=== PATIENT | male | born 1985 ===

== ENCOUNTER 2018-01-15 10:48 | Emergency (ER) | payer OTHER, SELFPAY ==
[2018-01-15 11:03] VITALS: BMI 29.4
[2018-01-15 11:06] VITALS: BP 111/73; PULSE 74; RESP 20; TEMP 98.5; O2SAT 97
--- NOTE | 2018-01-15 12:23 | ED PDOC ---
Upper Extremity Pain/Injury Time Seen by Provider: 01/15/18 11:47 Chief Complaint (Nursing): Upper Extremity Problem/Injury History Per: Patient, Compensation Adjuster (Hebrew [id number]) Additional Complaint(s): Pt. states yesterda at 1700 he slipped but prevented himself from falling but grabbing onto a railing with his L arm. He woke up in the middle of the night with non-radiating L shoulder pain. Denies numbness, tingling, chest pain, SOB, blunt trauma, neck pain. Past Medical History Reviewed: Historical Data, Nursing Documentation, Vital Signs Vital Signs: Last Vital Signs Temp 98.5 F 01/15/18 11:03 Pulse 74 01/15/18 11:03 Resp 20 01/15/18 11:03 BP 111/73 01/15/18 11:03 Pulse Ox 97 01/15/18 11:03 - Medical History PMH: No Chronic Diseases - Surgical History Surgical History: Appendectomy - Family History Family History: States: No Known Family Hx - Home Medications Home Medications: Ambulatory Orders Medication Instructions Recorded Cephalexin [Keflex] 500 mg PO QID #28 cap 12/28/14 Naproxen [Naprosyn] 500 mg PO BID PRN #10 tab 01/15/18 - Allergies Allergies/Adverse Reactions: Allergies Allergy/AdvReac Type Severity Reaction Status Date / Time No Known Allergies Allergy Verified 01/15/18 11:40 Review of Systems ROS Statement: Except As Marked, All Systems Reviewed And Found Negative Musculoskeletal: Positive for: Shoulder Pain Physical Exam - Physical Exam Appears: Positive for: Well, Non-toxic, No Acute Distress Head Exam: Positive for: ATRAUMATIC, NORMAL INSPECTION, NORMOCEPHALIC Skin: Positive for: Normal Color, Warm. Negative for: Rash Eye Exam: Positive for: Normal appearance Neck: Positive for: Normal, Painless ROM Cardiovascular/Chest: Positive for: Regular Rate, Rhythm, Chest Non Tender Respiratory: Positive for: Normal Breath Sounds. Negative for: Respiratory Distress Pulses-Radial (L): 2+ Pulses-Radial (R): 2+ Extremity: Positive for: Capillary Refill (< 2 seconds of L hand), Other (LEFT upper extremity: L lateral shoulder tenderness without deformity; limited ROM of shoulder actively secondary to pain; FROM of L shoulder passively but with pain) Neurologic/Psych: Positive for: Alert, Oriented - ECG O2 Sat by Pulse Oximetry: 97 - Radiology X-Ray: Interpreted by Me (L shoulder x-ray) X-Ray Interpretation: No Acute Disease - Progress ED Course And Treament: Naproxen 500mg PO, L shoulder x-ray ordered. Using nurse sane [id number] pt. was advised to f/u with orthopedist for further evaluation. Shoulder immobilized in sling applied by PA. Disposition - Clinical Impression Clinical Impression: Shoulder injury - Patient ED Disposition Is Patient to be Admitted: No - Disposition Referrals: Aramis Francois III, MD [Staff Provider] - Disposition: Routine/Home Disposition Time: 13:15 Condition: STABLE Additional Instructions: [facility], thank you for letting us take care of you today. Your provider was Chloe Mckeon MD and you were treated for LEFT SHOULDER PAIN. The emergency medical care you received today was directed at your acute symptoms. If you were prescribed any medication, please fill it and take as directed. It may take several days for your symptoms to resolve. Return to the Emergency Department if your symptoms worsen, do not improve, or if you have any other problems. Please contact your doctor or call one of the physicians/clinics you have been referred to that are listed on the Patient Visit Information form that is included in your discharge packet. Bring any paperwork you were given at discharge with you along with any medications you are taking to your follow up visit. Our treatment cannot replace ongoing medical care by a primary care provider outside of the emergency department. Thank you for allowing the [facility] team to be part of your care today. If you had an X-Ray or CT scan: A Radiologist will review the ED reading if any change in treatment is needed we will contact you. If you had a blood, urine, or wound culture: It will take several days for the results, if any change in treatment is needed we will contact you. If you had an STI test: It will take 48 hours for the results. Please call after 1 week if you have not heard back. Prescriptions: Naproxen [Naprosyn] 500 mg PO BID PRN #10 tab PRN Reason: Pain Instructions: Shoulder Sprain Forms: [employer] (Bulgarian), [facility] ED School/Work Excuse Print Language: ALBANIAN
[2018-01-15] MEDS ORDERED: Naproxen 500 MG TAB PO ONE (12:51)
[2018-01-15] MEDS: Naproxen 500 MG TAB PO ONE (12:51)
--- NOTE | 2018-01-15 13:56 | RAD ---
Date of service: 01/15/2018 PROCEDURE: Radiographs of the Left Shoulder HISTORY: trauma COMPARISON: No prior. FINDINGS: BONES: Normal. No fracture. JOINTS: Normal. Glenohumeral and acromioclavicular joints preserved. No osteoarthritis. SOFT TISSUES: Normal. OTHER FINDINGS: None. IMPRESSION: Normal radiographs of the left shoulder.
== END 2018-01-15 14:20 | disposition home or self-care (01) ==
LOC: H.ER 10:48
DX: S49.92XA Unspecified injury of left shoulder and upper arm, initial encounter (principal); W19.XXXA Unspecified fall, initial encounter; Y92.89 Other specified places as the place of occurrence of the external cause

== ENCOUNTER 2018-01-27 20:56 | Emergency (ER) | payer OTHER, SELFPAY ==
[2018-01-27 20:56] VITALS: BMI 29.4
[2018-01-27 21:52] VITALS: O2SAT 97
[2018-01-27] MEDS ORDERED: Sodium Chloride 0.9% 1,000 ML IV STA (22:16)
[2018-01-27] MEDS ORDERED: Iohexol 240 (50 ml) PO ONE (22:39)
--- NOTE | 2018-01-27 22:59 | ED PDOC ---
HPI: Abdomen Time Seen by Provider: 01/27/18 21:14 Chief Complaint (Nursing): Abdominal Pain Chief Complaint (Provider): Abdominal Pain History Per: Patient History/Exam Limitations: no limitations Onset/Duration Of Symptoms: Days (x2) Current Symptoms Are (Timing): Still Present Additional Complaint(s): 32-year-old female, with no significant past medical history, presenting for evaluation of abdominal pain associated with diarrhea x2 days. Patient states her symptoms began last night. She reports diarrhea yesterday, but none today. Patient also reports a low grade fever today. She confirms nausea, but denies any vomiting. Patient admits to drinking 2 beers yesterday and states she drinks one or twice a week. PMD: None reported Past Medical History Reviewed: Historical Data, Nursing Documentation, Vital Signs Vital Signs: Last Vital Signs Temp 98.1 F 01/28/18 03:05 Pulse 81 01/28/18 03:05 Resp 18 01/28/18 03:05 BP 112/70 01/28/18 03:05 Pulse Ox 97 01/28/18 03:05 - Medical History PMH: No Chronic Diseases - Surgical History Surgical History: Appendectomy - Family History Family History: States: Unknown Family Hx - Social History Current smoker - smoking cessation education provided: No Alcohol: Occasional Drugs: Denies - Home Medications Home Medications: Ambulatory Orders Medication Instructions Recorded Cephalexin [Keflex] 500 mg PO QID #28 cap 12/28/14 Naproxen [Naprosyn] 500 mg PO BID PRN #10 tab 01/15/18 - Allergies Allergies/Adverse Reactions: Allergies Allergy/AdvReac Type Severity Reaction Status Date / Time No Known Allergies Allergy Verified 01/15/18 11:40 Review of Systems ROS Statement: Except As Marked, All Systems Reviewed And Found Negative Constitutional: Positive for: Fever Gastrointestinal: Positive for: Nausea, Abdominal Pain, Diarrhea. Negative for : Vomiting Physical Exam - Reviewed Nursing Documentation Reviewed: Yes Vital Signs Reviewed: Yes - Physical Exam Appears: Positive for: Non-toxic, No Acute Distress Head Exam: Positive for: ATRAUMATIC, NORMAL INSPECTION, NORMOCEPHALIC Skin: Positive for: Normal Color, Warm, Dry. Negative for: Rash Eye Exam: Positive for: EOMI, Normal appearance, PERRL ENT: Positive for: Normal ENT Inspection Neck: Positive for: Normal, Painless ROM, Supple Cardiovascular/Chest: Positive for: Regular Rate, Rhythm. Negative for: Murmur Respiratory: Positive for: Normal Breath Sounds. Negative for: Respiratory Distress Gastrointestinal/Abdominal: Positive for: Soft, Tenderness (diffuse) Back: Positive for: Normal Inspection. Negative for: L CVA Tenderness, R CVA Tenderness, Vertebral Tenderness Extremity: Positive for: Normal ROM. Negative for: Deformity, Swelling Neurologic/Psych: Positive for: Alert, Oriented (x3). Negative for: Motor/ Sensory Deficits - Laboratory Results Result Diagrams: 01/27/18 22:52 01/27/18 22:52 - ECG O2 Sat by Pulse Oximetry: 97 (RA) Pulse Ox Interpretation: Normal Medical Decision Making Medical Decision Making: Impression: Abdominal pain RULE OUT DIVERTICULITIS VERSUS ABSCES Plan: -CT Abdomen and Pelvis w/ IV Contrast -CMP -Lipase -CBC -1LNS -Iohexol 50ml PO -Toradol 15mg IV -Tylenol 650mg PO -Zofran 4mg IV -Reevaluation CT Abd/Pelvis: FINDINGS: Lung bases: Unremarkable. No mass nor consolidation. No pleural effusions. ABDOMEN: Liver: Unremarkable. No solid mass. Diffuse fatty infiltration. Gallbladder and bile ducts: Unremarkable. No calcified stones. No ductal dilatation. Pancreas: Unremarkable. No mass. No ductal dilatation. Spleen: Unremarkable. No splenomegaly. Adrenals: Unremarkable. No mass. Kidneys and ureters: Unremarkable. No solid mass. No hydronephrosis. Stomach and bowel: No bowel obstruction. Thickened, inflamed distal ileal loops (long segment). PELVIS: Appendix: Previous appendectomy (as per the history provided). Bladder: Unremarkable. No mass nor stones. Reproductive: Unremarkable as visualized. ABDOMEN and PELVIS: Intraperitoneal space: Unremarkable. No free air. No significant fluid collection. Bones/joints: No acute fracture nor dislocation. Soft tissues: Unremarkable. Vasculature: Unremarkable. No abdominal aortic aneurysm. Lymph nodes: Unremarkable. No enlarged lymph nodes. IMPRESSION: Long segment of thickened, inflamed distal ileum. No abscess. No free air. No bowel obstruction. No drainable collections. Diagnostic considerations include: inflammatory bowel disease; infectious enteritis; vasculitis. Patient reports significant improvement in symptoms. Vitals repeated and stabilized and pulse normalized. PT FEELS BETTER AND VITALS NORMALIZED. TOLERATED PO. Upon provider evaluation patient is medically stable, and requires no further treatment in the ED at this time. Patient will be discharged home. Counseling was provided and all questions were answered regarding diagnosis and need for follow up with PMD. There is agreement to discharge plan. Return if symptoms persist or worsen. Scribe Attestation: Documented by Chicho Arias, acting as a scribe for David Sullivan MD. Provider Scribe Attestation: All medical record entries made by the Scribe were at my direction and personally dictated by me. I have reviewed the chart and agree that the record accurately reflects my personal performance of the history, physical exam, medical decision making, and the department course for this patient. I have also personally directed, reviewed, and agree with the discharge instructions and disposition. Disposition - Clinical Impression Clinical Impression: Abdominal pain - Patient ED Disposition Is Patient to be Admitted: No Counseled Patient/Family Regarding: Studies Performed, Diagnosis, Need For Followup - Disposition Referrals: [facility] [Outside] [facility] [Outside] [facility] [Outside] Disposition: Routine/Home Disposition Time: 03:15 Condition: IMPROVED Additional Instructions: follow up with your primary doctor in 1-2 days for further evaluation and definitive treatment return to the ED with any worsening or concerning symptoms Instructions: Viral Gastroenteritis, Adult (DC), Stomach Ache and Stomach Upset Forms: [facility] (Icelandic) Print Language: MALTESE
[2018-01-27 23:08] LABS: BASO % 0.3 % (0.0-2.0); EOS % 0.4 % (0.0-4.0); HEMOGLOBIN 15.7 g/dL (12.0-18.0); LYMPH # 1.1 K/uL (1.0-4.3); LYMPH % 12.8 % (20.0-40.0); MEAN CELL VOLUME 89.4 fl (80.0-94.0); MEAN CORPUSCULAR HEMOGLOBIN 30.1 pg (27.0-31.0); MEAN CORPUSCULAR HGB CONC 33.7 g/dL (33.0-37.0); MEAN PLATELET VOLUME 8.2 fl (7.2-11.7); MONO # 0.5 K/uL (0.0-0.8); MONO % 5.7 % (0.0-10.0); NEUT % 80.8 % (50.0-75.0); RBC 5.2 Mil/uL (4.40-5.90); RED CELL DISTRIBUTION WIDTH 12.6 % (11.5-14.5); WHITE BLOOD COUNT 8.6 K/uL (4.8-10.8)
[2018-01-27] MEDS ORDERED: Iohexol 240 (50 ml) ONE (23:12)
[2018-01-27 23:15] LABS: ALB/GLOB RATIO 1.5 (1.0-2.1); ALBUMIN 4.7 g/dL (3.5-5.0); ALT/SGPT 116 U/L (21-72); AST/SGOT 48 U/L (17-59); BLOOD UREA NITROGEN 15 mg/dl (9-20); CALCIUM 9.5 mg/dL (8.4-10.2); GFR AFRICAN-AMERICAN > 60; GFR NON-AFRICAN AMERICAN > 60; LIPASE 53 U/L (23-300)
[2018-01-28] MEDS ORDERED: Iohexol 300 100 ML IJ ONE (01:25)
[2018-01-28] MEDS ORDERED: Sodium Chloride 0.9% 50 ML IV ONE (01:26)
[2018-01-28 03:06] VITALS: BP 112/70; PULSE 81; RESP 18; TEMP 98.1
--- NOTE | 2018-01-28 12:57 | CT ---
Date of service: 01/28/2018 PROCEDURE: CT Abdomen and Pelvis with contrast HISTORY: abdominal pain COMPARISON: 08/25/2016 abdominal ultrasound TECHNIQUE: Contrast dose: 95 cc Omnipaque 300. Radiation dose: Total exam DLP = 507.07 mGy-cm. This CT exam was performed using one or more of the following dose reduction techniques: Automated exposure control, adjustment of the mA and/or kV according to patient size, and/or use of iterative reconstruction technique. FINDINGS: LOWER THORAX: Unremarkable. LIVER: Hepatic steatosis. No focal masses. No intrahepatic bile duct dilatation or perihepatic ascites. GALLBLADDER AND BILE DUCTS: Unremarkable. PANCREAS: Unremarkable. No gross lesion or ductal dilatation. SPLEEN: Unremarkable. ADRENALS: Unremarkable. No mass. KIDNEYS AND URETERS: Unremarkable. No hydronephrosis. No solid mass. VASCULATURE: Unremarkable. No aortic aneurysm. BOWEL: Inflammatory changes affecting the distal small bowel-ileum. No associated obstructing lesion. APPENDIX: Prior appendectomy by history PERITONEUM: Unremarkable. No free fluid. No free air. LYMPH NODES: Unremarkable. No enlarged lymph nodes. BLADDER: Unremarkable. REPRODUCTIVE: Unremarkable. BONES: No acute fracture. OTHER FINDINGS: None. IMPRESSION: Inflammatory changes affecting distal ileum/ ileitis without obstruction. Additional benign and/or incidental findings described above. Concordant results (preliminary interpretation) provided by [employer]. Procedure Completed: 01:36. Preliminary ([facility]Rad) Report: Dictated and Authenticated: 02:26. Final Interpretation: 12:55.
== END 2018-01-28 03:05 | disposition home or self-care (01) ==
LOC: H.ER 20:56
DX: R10.9 Unspecified abdominal pain (principal); R19.7 Diarrhea, unspecified; K52.9 Noninfective gastroenteritis and colitis, unspecified
CPT/HCPCS: 74177; 80053; 83690; 85025; 96361; 96374; 96375; 99283; J1885; J2405; J7030; Q9966; Q9967

== ENCOUNTER 2018-06-06 19:14 | Emergency (ER) | payer SELFPAY ==
[2018-06-06 19:14] VITALS: BMI 29.4
[2018-06-06 19:29] VITALS: TEMP 98.9
--- NOTE | 2018-06-06 19:45 | ED PDOC ---
HPI: Trauma/Fall - HPI Time Seen by Provider: 06/06/18 19:30 Chief Complaint (Nursing): Trauma Chief Complaint (Provider): Head Injury History Per: Patient History/Exam Limitations: no limitations Injury Occurred (Timing): Just Before Arrival Additional Complaint(s): 33 year old male presents to the ED via EMS s/p head injury. Patient states he was walking with his daughter when a 20 foot ladder fell that was leaning on the side of a house and struck his head. He reports that he saw things go black, but is unsure if he blacked out. At this time he notes pain in his head, but no neck pain or extremity weakness. Denies taking any medications today or prior to arrival. PMD: none provided Past Medical History Reviewed: Historical Data Vital Signs: Last Vital Signs Temp 98.9 F 06/06/18 19:27 Pulse 109 H 06/06/18 19:27 Resp 20 06/06/18 19:27 BP 131/90 06/06/18 19:27 Pulse Ox 98 06/06/18 19:27 - Medical History PMH: No Chronic Diseases - Surgical History Surgical History: Appendectomy - Family History Family History: States: Unknown Family Hx - Social History Current smoker - smoking cessation education provided: No Ex-Smoker (has not smoked in the last 12 months): Yes Alcohol: None Drugs: Denies - Home Medications Home Medications: Ambulatory Orders Medication Instructions Recorded Cephalexin [Keflex] 500 mg PO QID #28 cap 12/28/14 Naproxen [Naprosyn] 500 mg PO BID PRN #10 tab 01/15/18 Ibuprofen [Motrin] 600 mg PO Q8 PRN #21 tab 06/06/18 - Allergies Allergies/Adverse Reactions: Allergies Allergy/AdvReac Type Severity Reaction Status Date / Time No Known Allergies Allergy Verified 06/06/18 19:27 Review of Systems ROS Statement: Except As Marked, All Systems Reviewed And Found Negative Constitutional: Positive for: Other (head injury) Musculoskeletal: Negative for: Neck Pain Neurological: Positive for: Other (questionable loss of consciousness). Negative for: Weakness Physical Exam - Reviewed Nursing Documentation Reviewed: Yes Vital Signs Reviewed: Yes - Physical Exam Appears: Positive for: No Acute Distress Head Exam: Negative for: ATRAUMATIC (tenderness over riht parietal region with mild swelling noted; no laceration) Skin: Positive for: Normal Color Eye Exam: Positive for: Normal appearance ENT: Positive for: Normal ENT Inspection Neck: Positive for: Normal, Painless ROM, Supple Cardiovascular/Chest: Positive for: Regular Rate, Rhythm Respiratory: Positive for: Normal Breath Sounds. Negative for: Respiratory Distress Gastrointestinal/Abdominal: Positive for: Normal Exam, Soft. Negative for: Tenderness Extremity: Positive for: Normal ROM Neurologic/Psych: Positive for: Alert, Oriented (x3). Negative for: Motor/Sensory Deficits - ECG O2 Sat by Pulse Oximetry: 98 (RA) Pulse Ox Interpretation: Normal Medical Decision Making Medical Decision Making: Time: 1936 Initial Impression: head injury Initial Plan: --CT Head without contrast --Ibuprofen 600mg PO 2031 CT Head FINDINGS: BRAIN No acute intraparenchymal hemorrhage. No mass lesion. No CT evidence for acute territorial infarct. No midline shift or extra-axial collections. VENTRICLES: No hydrocephalus. ORBITS: The orbits are unremarkable. SINUSES AND MASTOIDS: The paranasal sinuses and mastoid air cells are clear. BONES: No fracture. SOFT TISSUES: Impressions: No acute intracranial pathology. Calvarium intact. A scalp contusion is not identified. IMPRESSION: Impressions: No acute intracranial pathology. Calvarium intact. A scalp contusion is not identified. Scribe Attestation: Documented by Jemima Ham, acting as a scribe for Lucy Chapman PA-C. Provider Scribe Attestation: All medical record entries made by the Scribe were at my direction and personally dictated by me. I have reviewed the chart and agree that the record accurately reflects my personal performance of the history, physical exam, medical decision making, and the department course for this patient. I have also personally directed, reviewed, and agree with the discharge instructions and disposition. Disposition - Clinical Impression Clinical Impression: Head injury - Patient ED Disposition Is Patient to be Admitted: No - Disposition Referrals: [facility] [Outside] Disposition: Routine/Home Disposition Time: 20:52 Condition: FAIR Prescriptions: Ibuprofen [Motrin] 600 mg PO Q8 PRN #21 tab PRN Reason: Pain, Moderate (4-7) Instructions: Closed Head Injury (DC) Forms: [facility] ED School/Work Excuse Print Language: ESTONIAN
[2018-06-06 20:59] VITALS: BP 129/85; PULSE 92; RESP 15; O2SAT 99
--- NOTE | 2018-06-07 13:43 | CT ---
Date of service: 06/06/2018 PROCEDURE: CT HEAD WITHOUT CONTRAST. HISTORY: head injury; ?LOC COMPARISON: None available. TECHNIQUE: Axial computed tomography images were obtained through the head/brain without intravenous contrast. Radiation dose: Total exam DLP = 833.06 mGy-cm. This CT exam was performed using one or more of the following dose reduction techniques: Automated exposure control, adjustment of the mA and/or kV according to patient size, and/or use of iterative reconstruction technique. FINDINGS: HEMORRHAGE: No intracranial hemorrhage. BRAIN: No mass effect or edema. No atrophy or chronic microvascular ischemic changes. VENTRICLES: Unremarkable. No hydrocephalus. CALVARIUM: Unremarkable. PARANASAL SINUSES: Unremarkable as visualized. No significant inflammatory changes. MASTOID AIR CELLS: Unremarkable as visualized. No inflammatory changes. OTHER FINDINGS: None. IMPRESSION: No acute intracranial hemorrhage.
== END 2018-06-06 20:59 | disposition home or self-care (01) ==
LOC: H.ER 19:14
DX: S09.90XA Unspecified injury of head, initial encounter (principal); Z87.891 Personal history of nicotine dependence; W20.8XXA Other cause of strike by thrown, projected or falling object, initial encounter